=== PATIENT | male | born 1970 | race Caucasian/White ===

== ENCOUNTER 2017-01-22 09:54 | Emergency (ER) | payer OTHER ==
[~2017-01-22] VITALS: Ht 172.7 cm; Wt 84.1 kg
[~2017-01-22 09:54] MED LIST: CEFT1INJ57 INJ; DIPH25CA5 PO; HYDR25TA5 PO; IBUP-1050 PO; LSN20 PO; OXYC1TAB3 PO
[2017-01-22 09:56] VITALS: TEMP 37.1; Ht 172.7 cm; Wt 84.1 kg
[2017-01-22 10:14] VITALS: O2SAT 97
[2017-01-22] MEDS ORDERED: ASPIRIN 81 MG CHEW PO STA (10:14)
[2017-01-22] MEDS: NITROGLYCERIN 0.4 MG SL PER TAB CHARGE SL PRN ×2 (10:20→10:26)
[2017-01-22 10:29] LABS: BASO % 0.4 %; BASO ABS # 0.05 K/uL (0-0.2); COMPLETE YES; EOS % 1.7 %; HEMATOCRIT 40.8 % (42-52); IG% 0.1 %; LYMPH % 29.9 %; LYMPH ABS # 4.26 K/uL (1.2-3.4); MEAN CELL VOLUME 85.5 fL (80-100); MEAN CORPUSCULAR HEMOGLOBIN 29.6 pg (25-34); MEAN CORPUSCULAR HGB CONC 34.6 g/dl (32-36); MEAN PLATELET VOLUME 9.7 fL (7.4-10.4); MONO % 3.9 %; PLATELET COUNT 285 K/uL (130-400); RED BLOOD COUNT 4.77 M/uL (4.7-6.1); WHITE BLOOD COUNT 14.24 K/uL (4.8-10.8)
--- NOTE | 2017-01-22 10:38 | DIAGNOSTIC IMAGING REPORT ---
CHEST ONE VIEW PORTABLE HISTORY: Atypical Chest Pain COMPARISON: Chest 09/11/2016. FINDINGS: The lungs are clear. Cardiac silhouette is normal in size. No pleural effusions. No pneumothorax. IMPRESSION: No acute process. Electronically signed by: Teto Restrepo M.D. 01/22/2017 10:37 AM Dictated Date/Time: 01/22/2017 10:36 AM
[2017-01-22 10:44] LABS: BLOOD UREA NITROGEN 17 mg/dl (7-18); CARBON DIOXIDE 23 mmol/L (21-32); CHLORIDE 105 mmol/L (98-107); CREATININE 0.99 mg/dl (0.60-1.40); GLUCOSE 99 mg/dl (70-99); POTASSIUM 3.8 mmol/L (3.5-5.1); SODIUM 137 mmol/L (136-145)
[2017-01-22] MEDS ORDERED: PRLSR20 PO (10:46)
[2017-01-22] MEDS ORDERED: ONDANSETRON INJ 2 MG/ML 2 ML VIAL IV STA (10:51)
[2017-01-22] MEDS ORDERED: MoRPHine SULFATE 4 MG/ML 1 ML CARP\\VIAL IV STA ×2 (10:51→13:26)
[2017-01-22] MEDS ORDERED: SODIUM CHLORIDE 0.9% 1000ML 1,000 ML IV STA (12:48)
[2017-01-22 15:45] VITALS: BP 110/72; PULSE 90; O2SAT 95
--- NOTE | 2017-01-22 16:45 | EXERCISE STRESS ECHO ---
*NOTICE TO RECEIVING LIBERTARIAN AGENCY This information is strictly Confidential and protected under [place] law. [place] law prohibits you from making any further disclosure of this information unless further disclosure is expressly permitted by the written consent of the person to whom it pertains or is authorized by law. A general authorization for the release of medical or other information is not sufficient for this purpose. Hospital accepts no responsibility if the information is made available to any other person, INCLUDING THE PATIENT. Interpretation Summary * Name: ARACELI DAVIS Study Date: 01/22/2017 02:00 PM BP: 108/60 mmHg * Patient Location: [facility] HR: 65 * : 1970 (M/d/yyyy) Gender: Male Height: 68 in * Age: 47 yrs Ethnicity: CA Weight: 185 lb * Ordering Physician: Wale Ventura * Referring Physician: SRIKANTH * Performed By: Leatha De Souza RDCS * * Reason For Study: CHEST PAIN * BSA: 2.0 m2 * History: CHEST PAIN * The study was technically adequate. * There is no comparison study available. * The exercise echocardiographic examination is normal without resting left ventricular wall motion abnormalities or inducible ischemia. * -- Conclusions -- * Left ventricular systolic function is normal. * Ejection Fraction = 55-60%. * Resting wall motion: Normal. Stress wall motion: Appropriate increase in Left ventricular systolic function and decrease in cavity size. No stress induced segmental wall motion abnormalities. * No significant valvular pathology. Procedure Details * ECHOEX, CPT #44434 * A contrast injection of Definity was performed to improve assessment of LV function. * Contrast was injected into an intravenous site in the right arm. * One vial of Definity ultrasound contrast was diluted in normal saline to a total volume of 10 ml. A total of '4' ml of solution was administered during imaging. * Lot # [id number] of Definity utilized for procedure. * Expiration date FEB 05. * The attending nurse who injected the contrast agent was TIM SHEPHERD RN. * ECHO DOPPLER, CPT #64550 * ECHO COLOR FLOW, CPT #13295 Left Ventricle * The left ventricle is normal in size. * There is no thrombus. * There is normal left ventricular wall thickness. * Ejection Fraction = 55-60%. * Left ventricular systolic function is normal. * Resting wall motion: Normal. Stress wall motion: Appropriate increase in Left ventricular systolic function and decrease in cavity size. No stress induced segmental wall motion abnormalities. Right Ventricle * The right ventricle is normal in size and function. Atria * The left atrial size is normal. * Right atrial size is normal. * No ASD detected; PFO is not assessed. Mitral Valve * The mitral valve is normal. * There is no mitral valve stenosis. * Significant mitral regurgitation is absent. Tricuspid Valve * The tricuspid valve is normal. * There is no tricuspid stenosis. * No tricuspid regurgitation. Aortic Valve * The aortic valve is not well visualized. * No hemodynamically significant valvular aortic stenosis. * No aortic regurgitation is present. Pulmonic Valve * The pulmonary valve is not well seen, but the Doppler examination is normal without significant regurgitation or stenosis. Great Vessels * The aortic root is normal size. Pericardium * There is no pericardial effusion. Stress Parameters * The baseline ECG displays normal sinus rhythm. * Stress ECG: No ST changes. No arrhythmias. * The stress portion of this study was personally supervised by the undersigned interpreting physician. * Rest heart rate was '65' BPM. * Rest blood pressure was '108/60' * Maximum heart rate achieved was 153 bpm. * Maximum heart rate was 87 % of maximum age-predicted heart rate. * Maximum blood pressure was '186/74' * Total exercise time was '9:00' * Maximum exercise MET level achieved was '10.10' METS * Maximum treadmill speed was '3.40' miles per hour. * Maximum treadmill elevation was '14.00'% grade. * Exercise was terminated due to 'fatigue' * The patient exhibited fatigue during the drug infusion. Left Ventricular Diastolic Function * Pulse wave TDI of the anterior and posterior mitral annulas demonstrates normal LV relaxation MMode 2D Measurements and Calculations IVSd 0.92 cm IVSs 1.2 cm LVIDd 4.1 cm LVIDs 3.0 cm LVPWd 1.0 cm LVPWs 1.4 cm IVS/LVPW 0.88 FS 27.5 % EDV(Teich) 75.5 ml ESV(Teich) 34.8 ml EF(Teich) 53.9 % EDV(cubed) 70.4 ml ESV(cubed) 26.8 ml EF(cubed) 61.9 % % IVS thick 30.3 % % LVPW thick 38.4 % LV mass(C)d 130.4 grams LV mass(C)dI 66.0 grams/m\S\2 LV mass(C)s 127.5 grams LV mass(C)sI 64.5 grams/m\S\2 SV(Teich) 40.7 ml SI(Teich) 20.6 ml/m\S\2 SV(cubed) 43.6 ml SI(cubed) 22.1 ml/m\S\2 Ao root diam 3.0 cm Ao root area 7.3 cm\S\2 LA dimension 3.4 cm LA/Ao 1.1 LVAd ap4 31.6 cm\S\2 LVLd ap4 9.1 cm EDV(MOD-sp4) 91.7 ml LVAs ap4 18.9 cm\S\2 LVLs ap4 7.4 cm ESV(MOD-sp4) 42.4 ml EF(MOD-sp4) 53.8 % LVAd ap2 24.9 cm\S\2 LVLd ap2 8.7 cm EDV(MOD-sp2) 63.0 ml LVAs ap2 13.6 cm\S\2 LVLs ap2 7.0 cm ESV(MOD-sp2) 23.8 ml EF(MOD-sp2) 62.2 % SV(MOD-sp4) 49.3 ml SI(MOD-sp4) 24.9 ml/m\S\2 SV(MOD-sp2) 39.2 ml SI(MOD-sp2) 19.8 ml/m\S\2
--- NOTE | 2017-01-22 17:48 | EMERGENCY ROOM VISIT NOTE ---
History Report prepared by Juan: Damian Nevarez Under the Supervision of: Dr. Wale Ventura D.O. First contact with patient: 10:01 Chief Complaint: CHEST PAIN Stated Complaint: CHEST PAIN AND DIZZINESS History of Present Illness The patient is a 47 year old male who presents to the Emergency Room with complaints of persistent chest pain that started around 45 minutes. The patient says the chest pain is accompanied with dizziness, shortness of breath, arm pain , and nausea. He still has the chest pain and accompanied symptoms. The patient was just getting to work when the symptoms came on. He has not taken anything for the pain. His pain is not worsened or made better by anything. He denies any vomiting, coughing, diarrhea, or urinary symptoms. He has had episodes similar to this once or twice in the past. He has hypertension, and takes Hydrochlorothiazide and Lisinopril for that. He says that he has high cholesterol as well, but it is not bad enough to take medication for it. He is a smoker. The patient has no previous heart disease. He has not had any recent trips or surgeries. He has not had any previous stress tests. Source of History: patient Onset: 45 minutes ago Position: chest Timing: other (persistent) Associated Symptoms: + SOB, + nausea, No cough, No diarrhea, No urinary symptoms, No vomiting Note: Associated symptoms: Dizziness, arm pain. Review of Systems See HPI for pertinent positives & negatives. A total of 10 systems reviewed and were otherwise negative. Past Medical & Surgical Medical Problems: (1) Abrasion of right arm (2) ANXIETY STATE NOS (3) BIPOLAR DISORDER, UNSPECIFIED (4) Bronchitis (5) Chest pain (6) Chest pain (7) DEPRESS DISORDER-UNSPEC (8) HYPERTENSION NOS (9) Ingrown left big toenail (10) Injury of right hand (11) Left foot pain (12) Leukocytosis (13) LUMBAR DISC DISPLACEMENT (14) Muscle strain (15) Paronychia of great toe, left (16) Pneumonitis (17) Precordial chest pain (18) Right elbow pain (19) Thoracic myofascial strain Family History Cancer Heart disease Hypertension Kidney disease Lung disease Social History Smoking Status: Current Every Day Smoker Alcohol Use: occasionally Drug Use: none Marital Status: single Housing Status: lives with significant other Occupation Status: employed Current/Historical Medications Scheduled Diphenhydramine Hcl (Benadryl), 25 MG PO DAILY Hydrochlorothiazide (Hydrochlorothiazide), 25 MG PO DAILY Lisinopril (Lisinopril), 20 MG PO DAILY Omeprazole (Prilosec), 20 MG PO DAILY Scheduled PRN Ibuprofen (Advil), 400 MG PO DIRECTED PRN for Pain Allergies Coded Allergies: Acetaminophen (Verified Allergy, Intermediate, hives, 01/22/17) Hydrocodone (Verified Allergy, Intermediate, hives, 01/22/17) Ketorolac (Verified Allergy, Intermediate, HIVES, HAS TAKEN MOTRIN W/O PROBLEM, 01/22/17) Penicillins (Verified Allergy, Unknown, ., 01/22/17) Tramadol (Verified Allergy, Unknown, ., 01/22/17) Propoxyphene (Verified Adverse Reaction, Mild, THROWS UP AFTER TAKING, 01/22) Physical Exam Vital Signs Date Time Temp Pulse Resp B/P Pulse Ox O2 Delivery O2 Flow Rate FiO2 01/22/17 15:45 90 20 110/72 95 01/22/17 14:35 74 16 112/77 97 01/22/17 13:39 66 18 114/78 97 Room Air 01/22/17 13:04 72 01/22/17 12:00 66 14 98/72 97 01/22/17 11:05 78 20 122/83 96 01/22/17 10:47 77 24 116/70 95 Room Air 01/22/17 10:33 82 24 117/72 95 01/22/17 10:27 89 28 124/77 94 Room Air 01/22/17 10:20 82 16 127/76 96 Room Air 01/22/17 10:14 97 Room Air 01/22/17 10:10 97 01/22/17 10:10 97 Room Air 01/22/17 09:56 37.1 102 18 114/82 95 Room Air Physical Exam GENERAL: sitting up in bed, alert, well appearing, well nourished, no distress, non-toxic EYE EXAM: normal conjunctiva OROPHARYNX: no exudate, no erythema, lips, buccal mucosa, and tongue normal and mucous membranes are moist NECK: supple, no nuchal rigidity, no adenopathy, non-tender LUNGS: Clear to auscultation. Normal chest wall mechanics HEART: no murmurs, S1 normal and S2 normal ABDOMEN: abdomen soft, non-tender, normo-active bowel sounds, no masses, no rebound or guarding. BACK: Back is symmetrical on inspection and there is no deformity, no midline tenderness, no CVA tenderness. SKIN: no rashes and no bruising UPPER EXTREMITIES: upper extremities are grossly normal. radial pulses equal bilaterally. LOWER EXTREMITIES: No pitting edema. Calves equal bilaterally. NEURO EXAM: Normal sensorium, cranial nerves II-XII grossly intact, normal speech, no gross weakness of arms, no gross weakness of legs. Medical Decision & Procedures ER Provider Diagnostic Interpretation: Xray results per the radiologist and my interpretation. CHEST ONE VIEW PORTABLE HISTORY: Atypical Chest Pain COMPARISON: Chest 09/11/2016. FINDINGS: The lungs are clear. Cardiac silhouette is normal in size. No pleural effusions. No pneumothorax. IMPRESSION: No acute process. Electronically signed by: Teto Restrepo M.D. 01/22/2017 10:37 AM Dictated Date/Time: 01/22/2017 10:36 AM Laboratory Results 01/22/17 10:10 Red Blood Count 4.77, Mean Corpuscular Volume 85.5, Mean Corpuscular Hemoglobin 29.6, Mean Corpuscular Hemoglobin Concent 34.6, Mean Platelet Volume 9.7, Neutrophils (%) (Auto) 64.0, Lymphocytes (%) (Auto) 29.9, Monocytes (%) (Auto) 3.9, Eosinophils (%) (Auto) 1.7, Basophils (%) (Auto) 0.4, Neutrophils # (Auto) 9.12, Lymphocytes # (Auto) 4.26, Monocytes # (Auto) 0.55, Eosinophils # (Auto) 0.24, Basophils # (Auto) 0.05 01/22/17 10:10 Test 01/22/17 10:10 01/22/17 14:00 White Blood Count 14.24 K/uL (4.8-10.8) Red Blood Count 4.77 M/uL (4.7-6.1) Hemoglobin 14.1 g/dL (14.0-18.0) Hematocrit 40.8 % (42-52) Mean Corpuscular Volume 85.5 fL (80-100) Mean Corpuscular Hemoglobin 29.6 pg (25-34) Mean Corpuscular Hemoglobin Concent 34.6 g/dl (32-36) Platelet Count 285 K/uL (130-400) Mean Platelet Volume 9.7 fL (7.4-10.4) Neutrophils (%) (Auto) 64.0 % Lymphocytes (%) (Auto) 29.9 % Monocytes (%) (Auto) 3.9 % Eosinophils (%) (Auto) 1.7 % Basophils (%) (Auto) 0.4 % Neutrophils # (Auto) 9.12 K/uL (1.4-6.5) Lymphocytes # (Auto) 4.26 K/uL (1.2-3.4) Monocytes # (Auto) 0.55 K/uL (0.11-0.59) Eosinophils # (Auto) 0.24 K/uL (0-0.5) Basophils # (Auto) 0.05 K/uL (0-0.2) RDW Standard Deviation 41.4 fL (36.4-46.3) RDW Coefficient of Variation 13.2 % (11.5-14.5) Immature Granulocyte % (Auto) 0.1 % Immature Granulocyte # (Auto) 0.02 K/uL (0.00-0.02) D-Dimer < 190 ug/L FEU (0-500) Anion Gap 9.0 mmol/L (3-11) Est Creatinine Clear Calc Drug Dose 99.5 ml/min Estimated GFR () 106.2 Estimated GFR (Non- 91.6 BUN/Creatinine Ratio 17.0 (10-20) Calcium Level 9.0 mg/dl (8.5-10.1) Total Creatine Kinase 53 U/L (39-308) Creatine Kinase MB < 0.5 ng/ml (0.5-3.6) Creatine Kinase MB Ratio (0-3.0) Troponin I < 0.015 ng/ml (0-0.045) Laboratory results per my review. Medications Administered Medications (Trade) Dose Ordered Sig/Can Route Start Time Stop Time Status Last Admin Dose Admin Aspirin (Aspirin Chew) 324 mg NOW STAT PO 01/22/17 10:14 01/22/17 10:15 DC 01/22/17 10:18 324 MG Nitroglycerin (Nitrostat Tab) 0.4 mg Q5M PRN SL 01/22/17 10:15 01/22/17 16:33 DC 01/22/17 10:26 0.4 MG Morphine Sulfate (MoRPHine SULFATE INJ) 4 mg NOW STAT IV 01/22/17 10:51 01/22/17 10:53 DC 01/22/17 11:04 4 MG Ondansetron HCl 4 mg 4 mg NOW STAT IV 01/22/17 10:51 01/22/17 10:53 DC 01/22/17 11:04 4 MG Sodium Chloride (Nss 1000ml) 1,000 ml @ 999 mls/hr Q1H1M STAT IV 01/22/17 12:48 01/22/17 13:48 DC 01/22/17 12:51 999 MLS/HR Morphine Sulfate (MoRPHine SULFATE INJ) 4 mg NOW STAT IV 01/22/17 13:26 01/22/17 13:28 DC 01/22/17 13:39 4 MG ECG Indication: chest pain Rate (beats per minute): 84 Findings: no ectopy, other (flipped T-wave in lead 3) Change: no significant change (from September 11 2016) ED Course ED COURSE: Vital signs were reviewed and showed tachycardic vitals. The patients medical record was reviewed The above diagnostic studies were performed and reviewed. ED treatments and interventions as stated above. 1009: The patient was evaluated in room C10. A complete history and physical examination was performed. 1014: Ordered Aspirin Chew 324 mg PO. 1015: Ordered Nitrostat Tab 0.4 SL PRN. 1050: I reevaluated the patient and he is still having chest pain after the nitro. 1051: Ordered Zofran Inj 4 mg IV, Morphine Sulfate Inj 4 mg IV. 1248: Ordered NSS 1000 ml @ 999 mls/hr IV. 1320: I reevaluated the patient and updated him. 1511: The patient is over at CT. 1543: I discussed the patient with Dr. Randy Ambrosio cardiology - he says that the patient is ready to be discharged. 1547: Upon reevaluation, the patient is resting comfortably.I discussed my findings with the patient and he understands and agrees with the treatment plan. Based on the patients age, coexisting illnesses, exam and lab findings the decision to treat as an outpatient was made. The patient remained stable while under my care. The patient appeared well at the time of discharge. Medical Decision Differential diagnoses includes but is not limited to acute coronary syndrome, myocardial infarction, pericarditis, pulmonary embolus, aortic dissection, pneumonia, pneumothorax, musculoskeletal, shingles, esophageal. Patient is a 47-year-old male who presents the ER for chest pain which started 45 minutes prior to arrival associated with left arm pain and shortness of breath. He describes it as a heaviness without radiation. Does have a history of hypertension and is a smoker. No previous issues with his aorta. Radial pulses are equal bilateral. Chest x-ray was unremarkable. D-dimer was negative. He is a low risk for PE. Troponins were negative 3. Stress was performed by cardiology which was negative. Patient was given 2 doses of morphine and had improvement of his pain. Nitroglycerin did not improve the pain. Patient was updated regards to his findings and is discharged follow-up with his primary care doctor as an outpatient as this is not cardiac. Discussed with Pt concerning signs and symptoms to watch out for. Pt was instructed to follow up with their PCP and discussed with the patient their option to return to the ED at anytime for persistent or worsening symptoms. The appropriate anticipatory guidance and out-patient management, including indications for return to the emergency department, were explained at length to the patient and understood. Consults Time Called: 1540 Consulting Physician: Dr. Randy Ambrosio cardiology Returned Call: [phone] I discussed the patient with Dr. Randy Ambrosio cardiology - he says that the patient is ready to be discharged. Impression Primary Impression: Precordial chest pain Scribe Attestation The scribe's documentation has been prepared under my direction and personally reviewed by me in its entirety. I confirm that the note above accurately reflects all work, treatment, procedures, and medical decision making performed by me. Departure Information Dispostion Home / Self-Care Referrals Je Aquino D.O. (PCP) Forms HOME CARE DOCUMENTATION FORM, IMPORTANT VISIT INFORMATION Patient Instructions Chest Pain - [facility], My [facility] Additional Instructions Please follow up with your primary care doctor with in the next 24 hours. Any worsening of your symptoms, please return to the ED immediately. This includes fevers greater than 100.4, passing out, worsening chest pain, weakness of your arms or legs, or any other concerning signs or symptoms from your standpoint.
[2017-01-23] MEDS ORDERED: ONDA4TAB46 PO (16:14)
[2017-01-23] MEDS ORDERED: IBUP-1427 PO (17:27)
[2017-08-25] MEDS ORDERED: AZIT250T PO (16:50)
== END 2017-01-22 16:03 | disposition home or self-care (01) ==
LOC: C.EDB 09:55 → C.EDC 16:03
DX: R07.2 Precordial pain (principal); I10 Essential (primary) hypertension; Z82.49 Family history of ischemic heart disease and other diseases of the circulatory system; F17.200 Nicotine dependence, unspecified, uncomplicated

== ENCOUNTER 2017-01-23 15:26 | Emergency (ER) | payer OTHER ==
[~2017-01-23] VITALS: Ht 175.3 cm; Wt 81.4 kg
[~2017-01-23 15:26] MED LIST changes: -CEFT1INJ57 INJ; -OXYC1TAB3 PO; +PRLSR20 PO
[2017-01-23 15:36] VITALS: TEMP 36.4; Ht 175.3 cm; Wt 81.4 kg
[2017-01-23] MEDS ORDERED: ONDANSETRON INJ 2 MG/ML 2 ML VIAL IV PRN (16:00)
[2017-01-23] MEDS ORDERED: SODIUM CHLORIDE 0.9% 1000ML 1,000 ML IV ONE (16:00)
--- NOTE | 2017-01-23 16:03 | EMERGENCY ROOM VISIT NOTE ---
History Report prepared by Juan: Leatha Hill Under the Supervision of: Dr. David Rodriguez M.D. First contact with patient: 15:44 Chief Complaint: CHEST PAIN Stated Complaint: CHEST PAIN, V, DIZZY History of Present Illness The patient is a 47 year old male who presents to the Emergency Room with complaints of persistent right sided chest pain that began yesterday. He currently rates his discomfort as a 9/10 in severity, describing his pain as a stabbing pain. The patient notes that he was evaluated in the emergency department for chest pain yesterday and states that he has noticed that his pain radiates into his abdomen. Per the patient's , the patient began vomiting when he arrived home yesterday and became dizzy with change of position. She notes that for the past two months the patient has been vomiting in the morning for an unknown reason. The patient notes that his pain is alleviated with lying flat. He denies any melena, hematochezia, or urinary symptoms. The patient associates nausea with his symptoms today. Source of History: patient Onset: yesterday Position: chest (right) Symptom Intensity: 9/10 Quality: stabbing, other (radiating) Timing: other (persistent) Modifying Factors (Relieving): other (lying flat) Associated Symptoms: + abdominal pain, + nausea, + vomiting, No hematochezia , No melena, No urinary symptoms Note: Associated Symptoms: dizziness Review of Systems See HPI for pertinent positives & negatives. A total of 10 systems reviewed and were otherwise negative, the history sheet was reviewed from the patient's visit yesterday. Past Medical & Surgical Medical Problems: (1) Abrasion of right arm (2) ANXIETY STATE NOS (3) BIPOLAR DISORDER, UNSPECIFIED (4) Bronchitis (5) Chest pain (6) Chest pain (7) DEPRESS DISORDER-UNSPEC (8) HYPERTENSION NOS (9) Ingrown left big toenail (10) Injury of right hand (11) Left foot pain (12) Leukocytosis (13) LUMBAR DISC DISPLACEMENT (14) Muscle strain (15) Paronychia of great toe, left (16) Pneumonitis (17) Precordial chest pain (18) Right elbow pain (19) Thoracic myofascial strain Family History Cancer Heart disease Hypertension Kidney disease Lung disease Social History Smoking Status: Current Every Day Smoker Alcohol Use: occasionally Drug Use: none Marital Status: single Housing Status: lives with significant other Occupation Status: employed Current/Historical Medications Scheduled Diphenhydramine Hcl (Benadryl), 25 MG PO DAILY Hydrochlorothiazide (Hydrochlorothiazide), 25 MG PO DAILY Lisinopril (Lisinopril), 20 MG PO DAILY Omeprazole (Prilosec), 20 MG PO DAILY Scheduled PRN Ibuprofen (Advil), 400 MG PO DIRECTED PRN for Pain Ibuprofen Tab (Motrin), 600 MG PO Q6H PRN for Pain Ondansetron Hcl (Zofran), 4 MG PO Q6 PRN for Nausea Allergies Coded Allergies: Acetaminophen (Verified Allergy, Intermediate, hives, 01/23/17) Hydrocodone (Verified Allergy, Intermediate, hives, 01/23/17) Ketorolac (Verified Allergy, Intermediate, HIVES, HAS TAKEN MOTRIN W/O PROBLEM, 01/23/17) Penicillins (Verified Allergy, Unknown, ., 01/23/17) Tramadol (Verified Allergy, Unknown, ., 01/23/17) Propoxyphene (Verified Adverse Reaction, Mild, THROWS UP AFTER TAKING, 01/23) Physical Exam Vital Signs Date Time Temp Pulse Resp B/P Pulse Ox O2 Delivery O2 Flow Rate FiO2 01/23/17 16:30 94 Room Air 01/23/17 15:36 36.4 89 20 135/82 97 Room Air Physical Exam GENERAL: Patient appears to be in mild to moderate distress. Patient awake, alert, oriented x 3. Patient follows commands. Patient does not appear toxic. Patient is adequately hydrated and well-nourished. SKIN: No erythema, pallor, cyanosis or rash HEENT: Normal head, pupils equal, reactive to light and accommodation. Neck: Without adenopathy, no neck vein distention. LUNGS: Clear to auscultation. No wheezes, no rales, no rhonchi. HEART: No murmurs. No gallops. No rubs ABDOMEN: Soft, nontender. No masses, no rebound, no hepatomegaly or splenomegaly. EXTREMITIES: No signs of trauma. No pedal or pretibial edema. No calf or thigh tenderness. NEUROLOGIC: Cranial nerves II-XII within normal limits. No gross motor sensory function deficits. Medical Decision & Procedures ER Provider Diagnostic Interpretation: Radiology results as stated below per my review and radiologist interpretation: Right upper quadrant ultrasound GALLBLADDER-ABD LIMITED CLINICAL HISTORY: right sided abd pain pain. Nausea. TECHNIQUE: Ultrasound COMPARISON STUDY: None FINDINGS: Normal gallbladder. Common bile duct 4 mm. Liver is uniform. Pancreas and right kidney are unremarkable. No evidence for hydronephrosis. 1.4 cm lower pole right renal cyst. IMPRESSION: Small right renal cyst. Otherwise negative study Electronically signed by: Ryan Cody M.D. 01/23/2017 5:13 PM Dictated Date/Time: 01/23/2017 5:12 PM Laboratory Results 01/23/17 16:20 Red Blood Count 4.90, Mean Corpuscular Volume 86.3, Mean Corpuscular Hemoglobin 30.6, Mean Corpuscular Hemoglobin Concent 35.5, Mean Platelet Volume 9.9, Neutrophils (%) (Auto) 67.2, Lymphocytes (%) (Auto) 25.0, Monocytes (%) (Auto) 5.2, Eosinophils (%) (Auto) 1.9, Basophils (%) (Auto) 0.4, Neutrophils # (Auto) 11.99, Lymphocytes # (Auto) 4.45, Monocytes # (Auto) 0.93, Eosinophils # (Auto) 0.33, Basophils # (Auto) 0.07 01/23/17 16:20 Test 01/23/17 00:00 01/23/17 16:20 Urine Color YELLOW Urine Appearance CLEAR (CLEAR) Urine pH 6.5 (4.5-7.5) Urine Specific [place] 1.010 (1.000-1.030) Urine Protein NEG (NEG) Urine Glucose (UA) NEG (NEG) Urine Ketones NEG (NEG) Urine Occult Blood NEG (NEG) Urine Nitrite NEG (NEG) Urine Bilirubin NEG (NEG) Urine Urobilinogen NEG (NEG) Urine Leukocyte Esterase NEG (NEG) White Blood Count 17.82 K/uL (4.8-10.8) Red Blood Count 4.90 M/uL (4.7-6.1) Hemoglobin 15.0 g/dL (14.0-18.0) Hematocrit 42.3 % (42-52) Mean Corpuscular Volume 86.3 fL (80-100) Mean Corpuscular Hemoglobin 30.6 pg (25-34) Mean Corpuscular Hemoglobin Concent 35.5 g/dl (32-36) Platelet Count 285 K/uL (130-400) Mean Platelet Volume 9.9 fL (7.4-10.4) Neutrophils (%) (Auto) 67.2 % Lymphocytes (%) (Auto) 25.0 % Monocytes (%) (Auto) 5.2 % Eosinophils (%) (Auto) 1.9 % Basophils (%) (Auto) 0.4 % Neutrophils # (Auto) 11.99 K/uL (1.4-6.5) Lymphocytes # (Auto) 4.45 K/uL (1.2-3.4) Monocytes # (Auto) 0.93 K/uL (0.11-0.59) Eosinophils # (Auto) 0.33 K/uL (0-0.5) Basophils # (Auto) 0.07 K/uL (0-0.2) RDW Standard Deviation 42.6 fL (36.4-46.3) RDW Coefficient of Variation 13.4 % (11.5-14.5) Immature Granulocyte % (Auto) 0.3 % Immature Granulocyte # (Auto) 0.05 K/uL (0.00-0.02) Anion Gap 8.0 mmol/L (3-11) Est Creatinine Clear Calc Drug Dose 107.3 ml/min Estimated GFR () 120.8 Estimated GFR (Non- 104.2 BUN/Creatinine Ratio 12.5 (10-20) Calcium Level 8.8 mg/dl (8.5-10.1) Total Bilirubin 0.3 mg/dl (0.2-1) Aspartate Amino Transf (AST/SGOT) 8 U/L (15-37) Alanine Aminotransferase (ALT/SGPT) 15 U/L (12-78) Alkaline Phosphatase 83 U/L (45-117) Total Protein 7.5 gm/dl (6.4-8.2) Albumin 3.9 gm/dl (3.4-5.0) Globulin 3.6 gm/dl (2.5-4.0) Albumin/Globulin Ratio 1.1 (0.9-2) Lipase 127 U/L (73-393) Laboratory results as stated above per my review. Medications Administered Medications (Trade) Dose Ordered Sig/Can Route Start Time Stop Time Status Last Admin Dose Admin Ondansetron HCl 4 mg 4 mg Q1HWA PRN IV 4/5/17 16:00 02/22/17 15:59 01/23/17 16:29 4 MG Sodium Chloride (Nss 1000ml) 1,000 ml @ 1,000 mls/hr Q1H ONCE IV 01/23/17 16:00 01/23/17 16:59 DC 01/23/17 16:29 1,000 MLS/HR ECG Indication: chest pain Rate (beats per minute): 69 Rhythm: sinus rhythm Findings: no acute ischemic change, no ectopy ED Course 1545: Past medical records reviewed. The patient was evaluated in room B7. A complete history and physical examination was performed. 1600: Ordered Sodium Chloride 1000 ml @ 1000 mls/hr IV, Zofran Inj 4 mg IV. 1717: I reevaluated the patient and he is resting comfortably. I discussed the exam findings with him and I discussed the treatment plan. He verbalized complete understanding and agreement. He is ready to go home. Medical Decision I considered multiple diagnoses including myocardial infarction, chest wall pain , pericarditis, myocarditis, aortic emergencies, pulmonary embolism, congestive heart failure, GI causes, cholelithiasis, cholecystitis, peptic/gastric ulcer disease, gastritis, musculoskeletal pain, and other significant cardiopulmonary disorders. The patient is here with right-sided abdominal and chest pain. was concerned that the patient may have gallbladder disease. The patient was here yesterday and a full cardio pulmonary workup. Stress test was negative. Additional lab work and ultrasound was performed today. Please see above. The patient has chronic/recurrent leukocytosis. The patient does not appear to have gallbladder disease. I do not believe he has a cardiopulmonary source for his pain. Pain may be musculoskeletal. GI causes including peptic/gastric ulcer disease or gastritis remain in the differential. The patient's been on multiple medications in the past. The patient has been taking ibuprofen but states it does not work. I do not feel comfortable prescribing narcotics for this patient. He is to follow-up with his family physician. Impression Primary Impression: Musculoskeletal pain Scribe Attestation The scribe's documentation has been prepared under my direction and personally reviewed by me in its entirety. I confirm that the note above accurately reflects all work, treatment, procedures, and medical decision making performed by me. Departure Information Dispostion Home / Self-Care Prescriptions Ibuprofen Tab (MOTRIN) 600 Mg Tab 600 MG PO Q6H Y for Pain, #30 TAB Prov: David Rodriguez M.D. 01/23/17 Referrals Je Aquino D.OJaycee (PCP) Forms HOME CARE DOCUMENTATION FORM, IMPORTANT VISIT INFORMATION Patient Instructions My [facility] Additional Instructions 600-800 mg ibuprofen every 6 hours as needed for pain. Continue all of your current medications as prescribed. Follow-up with your family physician within the next 2 weeks.
[2017-01-23] MEDS ORDERED: ONDA4TAB46 PO (16:14)
[2017-01-23 16:29] LABS: BASO % 0.4 %; BASO ABS # 0.07 K/uL (0-0.2); COMPLETE YES; EOS % 1.9 %; HEMATOCRIT 42.3 % (42-52); IG% 0.3 %; LYMPH ABS # 4.45 K/uL (1.2-3.4); MEAN CELL VOLUME 86.3 fL (80-100); MEAN CORPUSCULAR HEMOGLOBIN 30.6 pg (25-34); MEAN CORPUSCULAR HGB CONC 35.5 g/dl (32-36); MEAN PLATELET VOLUME 9.9 fL (7.4-10.4); MONO % 5.2 %; NEUT % 67.2 %; PLATELET COUNT 285 K/uL (130-400); WHITE BLOOD COUNT 17.82 K/uL (4.8-10.8)
[2017-01-23 16:48] LABS: ALB/GLOB RATIO 1.1 (0.9-2); BUN/CREATININE RATIO 12.5 (10-20); CALCIUM 8.8 mg/dl (8.5-10.1); CREATININE 0.87 mg/dl (0.60-1.40); POTASSIUM 3.6 mmol/L (3.5-5.1)
[2017-01-23 16:52] LABS: URINE APPEARANCE CLEAR (CLEAR); URINE BILIRUBIN NEG (NEG); URINE COLOR YELLOW; URINE NITRITE NEG (NEG); URINE PH 6.5 (4.5-7.5); UROBILINOGEN NEG (NEG); ZZUR CULT IF INDIC CLEAN CATCH NO
[2017-01-23 16:59] LABS: MANUAL MICROSCOPIC REQUIRED? NO; REVIEW REQ? NO
--- NOTE | 2017-01-23 17:14 | DIAGNOSTIC IMAGING REPORT ---
Right upper quadrant ultrasound GALLBLADDER-ABD LIMITED CLINICAL HISTORY: right sided abd pain pain. Nausea. TECHNIQUE: Ultrasound COMPARISON STUDY: None FINDINGS: Normal gallbladder. Common bile duct 4 mm. Liver is uniform. Pancreas and right kidney are unremarkable. No evidence for hydronephrosis. 1.4 cm lower pole right renal cyst. IMPRESSION: Small right renal cyst. Otherwise negative study Electronically signed by: Ryan Cody M.D. 01/23/2017 5:13 PM Dictated Date/Time: 01/23/2017 5:12 PM
[2017-01-23] MEDS ORDERED: IBUP-1427 PO (17:27)
[2017-01-23 18:04] VITALS: BP 137/102; PULSE 80; O2SAT 97
[2017-08-25] MEDS ORDERED: AZIT250T PO (16:50)
== END 2017-01-23 18:06 | disposition home or self-care (01) ==
LOC: C.EDB 15:28
DX: R07.9 Chest pain, unspecified (principal); M79.1 Myalgia; R42 Dizziness and giddiness; R11.2 Nausea with vomiting, unspecified; N28.1 Cyst of kidney, acquired; F31.9 Bipolar disorder, unspecified; I10 Essential (primary) hypertension; F17.210 Nicotine dependence, cigarettes, uncomplicated

== ENCOUNTER 2017-11-25 20:30 | Emergency (ER) | payer OTHER ==
[~2017-11-25] VITALS: Ht 175.3 cm; Wt 88.8 kg
[~2017-11-25 20:30] MED LIST changes: -PRLSR20 PO
[2017-11-25 20:56] VITALS: TEMP 36.7; Ht 175.3 cm; Wt 88.8 kg
[2017-11-25] MEDS ORDERED: OXYCODONE/ACETAMINOPHEN 5-325 TAB PO STA (21:15)
--- NOTE | 2017-11-25 21:50 | DIAGNOSTIC IMAGING REPORT ---
CT HEAD WITHOUT CONTRAST (CT) CLINICAL HISTORY: Head pain status post trauma COMPARISON STUDY: MRI the brain dated 03/26/2008 TECHNIQUE: Axial CT of the brain is performed from the vertex to the skull base. IV contrast was not administered for this examination. A dose lowering technique was utilized adhering to the principles of ALARA. CT DOSE: 987.54 mGy.cm FINDINGS: There is no evidence of acute hemorrhage. There is no evidence of midline shift. There is an equivocal nonspecific hypodensity within the subcortical left parietal white matter. A nonemergent MRI study is recommended in follow-up to determine whether this represents a true or artifactual finding. No calvarial fractures are visualized. There is no evidence of pathologic ventricular dilatation. There is no evidence of acute sinusitis IMPRESSION: 1. Equivocal subcortical hypodensity within the left parietal white matter. A nonemergent MRI study is recommended in follow-up to determine whether this represents a true or artifactual finding. 2. No evidence of acute hemorrhage Electronically signed by: Galdino De Oliveira M.D. 11/25/2017 9:49 PM Dictated Date/Time: 11/25/2017 9:42 PM
--- NOTE | 2017-11-25 21:54 | DIAGNOSTIC IMAGING REPORT ---
CT OF THE CERVICAL SPINE CLINICAL HISTORY: Neck and shoulder pain status post trauma COMPARISON STUDY: 06/08/2013 CT DOSE: TECHNIQUE: CT scan of the cervical spine was performed from the skull base to the thoracic inlet. Images are reviewed in the axial, sagittal, and coronal planes. IV contrast was not administered for this examination. A dose lowering technique was utilized adhering to the principles of ALARA. FINDINGS: There are right apical blebs. No pneumothorax is visualized There is a reversal the normal cervical lordosis. There are moderate multilevel degenerative changes with prominent posterior lateral osteophytes at the C5-6 and C6-7 levels. There is calcification of posterior longitudinal ligament at the C3-4 level. There is a chronic right C3-4 facet joint irregularity. No acute fractures or traumatic subluxations are visualized IMPRESSION: Moderate degenerative change with reversal the normal cervical lordosis. No acute fractures or traumatic subluxations are visualized. Electronically signed by: Galdino De Oliveira M.D. 11/25/2017 9:53 PM Dictated Date/Time: 11/25/2017 9:50 PM
--- NOTE | 2017-11-25 22:13 | DIAGNOSTIC IMAGING REPORT ---
L SHOULDER MIN 2 VIEWS ROUTINE CLINICAL HISTORY: Left shoulder pain status post trauma COMPARISON: 07/06/2016 DISCUSSION: No fractures or dislocations are visualized. IMPRESSION: No fractures or dislocations identified. Electronically signed by: Galdino De Oliveira M.D. 11/25/2017 10:11 PM Dictated Date/Time: 11/25/2017 10:11 PM
--- NOTE | 2017-11-25 22:14 | DIAGNOSTIC IMAGING REPORT ---
THORACIC SPINE 3 VIEWS ROUTINE CLINICAL HISTORY: Back pain status post trauma COMPARISON STUDY: March 2014 FINDINGS: The paraspinal line is not displaced. There are mild multilevel degenerative changes. No fractures or traumatic subluxations are visualized. IMPRESSION: Mild multilevel degenerative change. No fractures or subluxations identified Electronically signed by: Galdino De Oliveira M.D. 11/25/2017 10:12 PM Dictated Date/Time: 11/25/2017 10:12 PM
[2017-11-25] MEDS ORDERED: PERCOCET HOME PACK PO STA (22:56)
[2017-11-25] MEDS ORDERED: OXYC-57 PO (22:58)
--- NOTE | 2017-11-25 22:59 | EMERGENCY ROOM VISIT NOTE ---
History First contact with patient: 21:04 Chief Complaint: NECK PAIN Stated Complaint: FELL ON ICE, POSSIBLE CONCUSSION, NECK PAIN History of Present Illness The patient is a 47 year old male who presents to the Emergency Room via private vehicle accompanied by female with complaints of "fell on ice, possible concussion, neck pain". The patient states that earlier today he was in a parking lot around 5:30 PM, when he slipped on the ice him a fell backwards and struck his head neck and shoulder. He notes pain in the head, neck and left shoulder region. There is associated dizziness. He denies any loss of consciousness or vomiting. He rates his overall pain currently as a 7/10. Review of Systems A complete 6-point Review of Systems was discussed with the patient, with pertinent positives and negatives listed in the History of Present Illness. All remaining Review of Systems questions can be considered negative unless otherwise specified. Past Medical/Surgical History Medical Problems: (1) Abrasion of right arm (2) ANXIETY STATE NOS (3) BIPOLAR DISORDER, UNSPECIFIED (4) Bronchitis (5) Chest pain (6) Chest pain (7) DEPRESS DISORDER-UNSPEC (8) HYPERTENSION NOS (9) Ingrown left big toenail (10) Injury of right hand (11) Left foot pain (12) Leukocytosis (13) LUMBAR DISC DISPLACEMENT (14) Muscle strain (15) Paronychia of great toe, left (16) Pneumonitis (17) Precordial chest pain (18) Right elbow pain (19) Thoracic myofascial strain Family History Cancer Heart disease Hypertension Kidney disease Lung disease Social History Smoking Status: Current Every Day Smoker Alcohol Use: occasionally Drug Use: none Marital Status: Housing Status: lives with family Occupation Status: employed Current/Historical Medications Scheduled Diphenhydramine Hcl (Benadryl), 25 MG PO DAILY Hydrochlorothiazide (Hydrochlorothiazide), 25 MG PO DAILY Ibuprofen (Advil), 800 MG PO 5XD Lisinopril (Lisinopril), 20 MG PO DAILY Scheduled PRN Oxycodone/Acetaminophen 5MG/325MG (Percocet 5MG/325MG), 1 TAB PO Q6 PRN for Pain Physical Exam Vital Signs Date Time Temp Pulse Resp B/P (MAP) Pulse Ox O2 Delivery O2 Flow Rate FiO2 11/25/17 23:20 72 20 116/76 94 Room Air 11/25/17 20:56 36.7 90 20 154/99 94 Room Air Physical Exam VITAL SIGNS - Vital signs and nursing notes were reviewed. Stable. GENERAL -47-year-old male appearing his stated age. Communicates well with provider and answers questions appropriately. SKIN - Gross examination of the entire body surface demonstrates no lacerations to the body surface. HEAD - Normocephalic, Atraumatic. No Anguiano's Sign or Raccoon's Eyes. No depressed skull fractures palpable. EYES - PERRL with EOMI bilaterally. Without subconjunctival hemorrhage. Palpebral conjunctiva pink and moist with no injection. EARS - No deformities of external structures noted on gross examination bilaterally. No hemotympanum present. No tympanic perforation noted. Handle of malleus, umbo, cone of light, pars tensa/flaccid all easily visualized. NOSE - Midline and without cyanosis. No epistaxis or clear watery discharge noted. Septum midline without deviation. No septal hematoma noted. No overlying ecchymosis noted. MOUTH/OROPHARYNX - Without perioral cyanosis. Tongue midline with equal elevation of palate bilaterally. No blood noted in the oropharynx. No tonsillar hypertrophy, erythema, or exudates noted. No dental fractures noted. NECK - there is tenderness to palpation over the cervical spinous processes. There is cervical paraspinal muscle tenderness noted. LUNGS - Chest wall symmetric without accessory muscle use, intercostals retractions, or central cyanosis. No flail chest or depressed fractures noted. No paradoxical chest wall movements noted. Normal vesicular breath sounds CTA B /L. No wheezes, rales, or rhonchi appreciated. CARDIAC - RRR with S1/S2. No murmur, rubs, or gallops appreciated. EXTREMITIES -No gross deformities noted of the extremities. No tenderness to palpation of the extremities. +5/5 strength noted in UE/LE bilaterally. NEUROLOGIC - Cranial nerves II through XII grossly intact. Sensory intact to light touch throughout. PSYCH - A&O, and cooperates fully with examiner. Pt is very pleasant and interacts well with examiner. Medical Decision & Procedures ER Provider Diagnostic Interpretation: [~ rep ct add3]] CT HEAD WITHOUT CONTRAST (CT) CLINICAL HISTORY: Head pain status post trauma COMPARISON STUDY: MRI the brain dated 03/26/2008 TECHNIQUE: Axial CT of the brain is performed from the vertex to the skull base. IV contrast was not administered for this examination. A dose lowering technique was utilized adhering to the principles of ALARA. CT DOSE: 987.54 mGy.cm FINDINGS: There is no evidence of acute hemorrhage. There is no evidence of midline shift. There is an equivocal nonspecific hypodensity within the subcortical left parietal white matter. A nonemergent MRI study is recommended in follow-up to determine whether this represents a true or artifactual finding. No calvarial fractures are visualized. There is no evidence of pathologic ventricular dilatation. There is no evidence of acute sinusitis IMPRESSION: 1. Equivocal subcortical hypodensity within the left parietal white matter. A nonemergent MRI study is recommended in follow-up to determine whether this represents a true or artifactual finding. 2. No evidence of acute hemorrhage Electronically signed by: Galdino De Oliveira M.D. 11/25/2017 9:49 PM Dictated Date/Time: 11/25/2017 9:[address] OF THE CERVICAL SPINE CLINICAL HISTORY: Neck and shoulder pain status post trauma COMPARISON STUDY: 06/08/2013 CT DOSE: TECHNIQUE: CT scan of the cervical spine was performed from the skull base to the thoracic inlet. Images are reviewed in the axial, sagittal, and coronal planes. IV contrast was not administered for this examination. A dose lowering technique was utilized adhering to the principles of ALARA. FINDINGS: There are right apical blebs. No pneumothorax is visualized There is a reversal the normal cervical lordosis. There are moderate multilevel degenerative changes with prominent posterior lateral osteophytes at the C5-6 and C6-7 levels. There is calcification of posterior longitudinal ligament at the C3-4 level. There is a chronic right C3-4 facet joint irregularity. No acute fractures or traumatic subluxations are visualized IMPRESSION: Moderate degenerative change with reversal the normal cervical lordosis. No acute fractures or traumatic subluxations are visualized. Electronically signed by: Galdino De Oliveira M.D. 11/25/2017 9:53 PM Dictated Date/Time: 11/25/2017 9:50 PM [~ rep ct add3]] THORACIC SPINE 3 VIEWS ROUTINE CLINICAL HISTORY: Back pain status post trauma COMPARISON STUDY: March 2014 FINDINGS: The paraspinal line is not displaced. There are mild multilevel degenerative changes. No fractures or traumatic subluxations are visualized. IMPRESSION: Mild multilevel degenerative change. No fractures or subluxations identified Electronically signed by: Galdino De Oliveira M.D. 11/25/2017 10:12 PM Dictated Date/Time: 11/25/2017 10:12 PM L SHOULDER MIN 2 VIEWS ROUTINE CLINICAL HISTORY: Left shoulder pain status post trauma COMPARISON: 07/06/2016 DISCUSSION: No fractures or dislocations are visualized. IMPRESSION: No fractures or dislocations identified. Electronically signed by: Galdino De Oliveira M.D. 11/25/2017 10:11 PM Dictated Date/Time: 11/25/2017 10:11 PM Medications Administered Medications (Trade) Dose Ordered Sig/Can Route Start Time Stop Time Status Last Admin Dose Admin Oxycodone/ Acetaminophen (Percocet 5-325mg Tab) 1 tab NOW STAT PO 11/25/17 21:15 11/25/17 21:17 DC 11/25/17 21:23 1 TAB Oxycodone/ Acetaminophen (Percocet 5/ 325MG Home Pack) 1 homepack UD STAT PO 11/25/17 22:56 11/25/17 22:57 DC 11/25/17 22:56 1 HOMEPACK Medical Decision Patient was seen and evaluated as above. He presents with today status post fall on ice. It is mechanical in nature, and no evidence of neurologic event incited this. He is nontoxic on exam. The versus risk of obtaining imaging was discussed, and the decision was made to obtain a CT scan of the patient's head and neck as well as x-rays of his left shoulder and thoracic spine. Results as above. Discussion was had regarding the results with the patient, and he is to have a nonemergent MRI in the near future but I believe is okay to have ordered by the family doctor in the outpatient setting. He was informed upon potential differential diagnosis. He'll be given a hard [place] J collar regarding the direct C-spine tenderness. He may warrant an MRI in 2 weeks if this persists. There is no neurovascular deficit upon exam. I do not believe that he had a CVA event causing today's fall. He will be given a short course of pain medication. No red flags in the PDMP. He was educated upon management , educated upon worrisome symptoms which to return, had questions answered prior to discharge, and was discharged home in good condition. In the evaluation and treatment of this patient, the following differential diagnoses were considered: Concussion, Contrecoup Injury, Brain Tumor, Depression, Encephalitis, Hypothyroidism, Meningitis, CVA, TIA, Migraine, Cluster Headache, Intracranial Abnormality, Intracranial Hemorrhage, Subdural Hematoma, Subarachnoid Hemorrhage, Hydrocephalus, Musculoskeletal Strain, Discitis, Cervical Spine Fracture, Cervical Spine Dislocation, Cervical Spine Subluxation, Cervical Spondylosis, Fibromyalgia, Osteoarthritis, Polymyalgia Rheumatica, Psychogenic Pain Disorder, Tumor of Soft Tissue or Spine, Shoulder Contusion, Shoulder Fracture, Shoulder Dislocation, Thoracic Outlet Syndrome, Adhesive Capsulitis, Rotator Cuff Tear, Proximal Clavicle Head Fracture, Apical Pneumonia, Pneumothorax, Hemothorax, or TB. Impression Primary Impression: Fall Additional Impressions: Head pain Neck pain Departure Information Dispostion Home / Self-Care Condition GOOD Prescriptions Oxycodone/Acetaminophen 5MG/325MG (PERCOCET 5MG/325MG) Tab 1 TAB PO Q6 Y for Pain, #12 TAB For Initial Treatment Prov: Danie Otto PA-C 11/25/17 Referrals Je Aquino D.OJaycee (PCP) Patient Instructions My [facility] Additional Instructions You have been treated in the Emergency Department for a Closed Head Injury, fall , and neck pain. You have received pain medicine in the emergency department which impairs your ability to operate a vehicle. It is illegal for you to drive after receiving these medicines. CT Scan of your head/brain demonstrated no acute bleeding or other EMERGENT abnormalities, however follow up for an MRI is recommended because of the head CT findings. Please call family doctor tomorrow to schedule follow up. This does not completely rule out the risk for future damage to the brain. You have been prescribed Percocet to be used for pain control. This is a narcotic medication. You cannot drive or consume alcohol while on this medicine. This medicine should only be used for pain that cannot be controlled with [id number] pain medicines. For pain control, you can use the following [id number] medicines (if >12 yo): - Regular strength (325mg/tab) Tylenol (acetaminophen) 2 tabs every 4-6 hours as needed. Do not exceed 12 tablets in a 24 hour period. Avoid taking more than 3 grams (3000 mg) of Tylenol per day. This includes any other sources of acetaminophen you may take on a regular basis. - Regular strength (200 mg/tab) Advil (ibuprofen) 1-2 tabs every 4-6 hours as needed. Do not exceed a dose of 3200 mg per day. You should relax in a quiet, dark place for the rest of the day. Avoid any possible triggers including: cigarette smoke, caffeine, nicotine, chocolate, wine, beer, loud noises or music, or bright lights. You should schedule a follow-up appointment in 2-3 days with your Primary Care Provider or established Neurologist for further evaluation and treatment of your Headache. Return to the Emergency Department if your current symptoms worsen despite treatment course outlined above, or if you develop any of the following symptoms : intractable pain despite aforementioned treatment course, visual disturbances , loss of vision, unilateral weakness or facial drooping, slurring of speech, loss of coordination, or loss of consciousness. Problem Qualifiers
[2017-11-25 23:20] VITALS: BP 116/76; PULSE 72; O2SAT 94
== END 2017-11-25 23:29 | disposition home or self-care (01) ==
LOC: C.EDB 20:56 → C.EDD 23:29
DX: M54.2 Cervicalgia (principal); R51 Headache; M25.512 Pain in left shoulder; W00.0XXA Fall on same level due to ice and snow, initial encounter; I10 Essential (primary) hypertension; F17.200 Nicotine dependence, unspecified, uncomplicated; Z80.9 Family history of malignant neoplasm, unspecified; Z82.49 Family history of ischemic heart disease and other diseases of the circulatory system; Z84.1 Family history of disorders of kidney and ureter

== ENCOUNTER 2017-11-30 16:13 | Emergency (ER) | payer OTHER ==
[~2017-11-30] VITALS: Ht 175.3 cm; Wt 85.0 kg
[~2017-11-30 16:13] MED LIST changes: +OXYC-57 PO
[2017-11-30 16:18] VITALS: TEMP 36.8; Ht 175.3 cm; Wt 85.0 kg
[2017-11-30] MEDS ORDERED: ACETAMINOPHEN 500 MG TAB PO STA (16:38)
[2017-11-30] MEDS ORDERED: ONDANSETRON INJ 2 MG/ML 2 ML VIAL IV PRN (16:45)
[2017-11-30] MEDS ORDERED: SODIUM CHLORIDE 0.9% 1000ML 1,000 ML IV ONE (16:45)
[2017-11-30 16:55] LABS: BASO % 0.3 %; BASO ABS # 0.04 K/uL (0-0.2); EOS % 0.9 %; EOS ABS # 0.14 K/uL (0-0.5); HEMOGLOBIN 15.9 g/dL (14.0-18.0); IG# 0.04 K/uL (0.00-0.02); LYMPH % 27.2 %; LYMPH ABS # 4.26 K/uL (1.2-3.4); MEAN CELL VOLUME 86.2 fL (80-100); MEAN CORPUSCULAR HEMOGLOBIN 30.5 pg (25-34); MEAN CORPUSCULAR HGB CONC 35.3 g/dl (32-36); MEAN PLATELET VOLUME 10.3 fL (7.4-10.4); MONO % 4.5 %; MONO ABS # 0.71 K/uL (0.11-0.59); NEUT % 66.8 %; NEUT ABS # 10.45 K/uL (1.4-6.5); PLATELET COUNT 262 K/uL (130-400); RED CELL DISTRIBUTION WIDTH SD 41.3 fL (36.4-46.3); WHITE BLOOD COUNT 15.64 K/uL (4.8-10.8)
[2017-11-30 17:03] LABS: CALCIUM 9.1 mg/dl (8.5-10.1); CREATININE 0.96 mg/dl (0.60-1.40); POTASSIUM 3.5 mmol/L (3.5-5.1)
[2017-11-30 17:06] LABS: TOTAL PROTEIN 7.6 gm/dl (6.4-8.2)
--- NOTE | 2017-11-30 17:24 | EMERGENCY ROOM VISIT NOTE ---
History First contact with patient: 16:19 Chief Complaint: FLU LIKE SX Stated Complaint: VOMITING HEADACHE 7 DAYS History of Present Illness The patient is a 47 year old male who presents to the Emergency Room with complaints of intermittent nausea and vomiting over the last 10 days. The patient also describes abdominal cramping. His bowel movements have been sparse. His last one was today and reportedly firm. He denies any fever or chills. The patient's significant other was recently diagnosed with influenza b. He denies any respiratory symptoms. He does have a headache. Review of Systems 10 system review performed and negative unless noted in HPI or below Past Medical/Surgical History Medical Problems: (1) Abrasion of right arm (2) ANXIETY STATE NOS (3) BIPOLAR DISORDER, UNSPECIFIED (4) Bronchitis (5) Chest pain (6) Chest pain (7) DEPRESS DISORDER-UNSPEC (8) HYPERTENSION NOS (9) Ingrown left big toenail (10) Injury of right hand (11) Left foot pain (12) Leukocytosis (13) LUMBAR DISC DISPLACEMENT (14) Muscle strain (15) Paronychia of great toe, left (16) Pneumonitis (17) Precordial chest pain (18) Right elbow pain (19) Thoracic myofascial strain Family History Cancer Heart disease Hypertension Kidney disease Lung disease Social History Smoking Status: Current Every Day Smoker Alcohol Use: occasionally Drug Use: none Marital Status: Housing Status: lives with family Occupation Status: employed Current/Historical Medications Scheduled PRN Oxycodone/Acetaminophen 5MG/325MG (Percocet 5MG/325MG), 1 TAB PO Q6 PRN for Pain Physical Exam Vital Signs Date Time Temp Pulse Resp B/P (MAP) Pulse Ox O2 Delivery O2 Flow Rate FiO2 11/30/17 18:46 88 18 156/92 99 11/30/17 17:45 74 20 156/96 100 Room Air 11/30/17 16:18 36.8 76 16 146/100 97 Room Air Physical Exam VITALS: Vitals are noted on the nurse's note and reviewed by myself. Vital signs stable. GENERAL: 47-year-old male, appears older than stated age, mildly uncomfortable in appearance SKIN: The skin was without rashes, erythema, edema, or bruising. HEAD: Normocephalic atraumatic. MOUTH: Mucous membranes dry NECK: Supple without nuchal rigidity. No lymphadenopathy. Cervical spine is nontender. No JVD. HEART: Regular rate and rhythm without murmurs gallops or rubs. LUNGS: Clear to auscultation bilaterally without wheezes, rales or rhonchi. No accessory muscle use. ABDOMEN: Bowel sounds present, but hypoactive..Soft, nontender, without organomegaly. No guarding or rebound tenderness. MUSCULOSKELETAL: No muscle atrophy, erythema, or edema noted. Strength 5/5 throughout. NEURO: Patient was alert and oriented to person place and time. Normal sensation to touch. No focal neurological deficits. Medical Decision & Procedures ER Provider Diagnostic Interpretation: Chest/abdominal x-rays Patient Name: ARACELI DAVIS Daina Unit Number: [id number] Dictated: 11/30/171734 Transcribed: 11/30/171734 PBS Printed Date/Time: [~ rep prt dt]/[~ rep prt tm] [~ rep ct labl] - [~ rep ct ivnm] [facility] Radiology Department [place] [id number] Dictated: 11/30/171734 Transcribed: 11/30/171734 PBS Printed Date/Time: [~ rep prt dt]/[~ rep prt tm] [~ rep ct labl] - [~ rep ct ivnm] IMPRESSION: 1. No acute cardiopulmonary disease. 2. No radiographic evidence of acute intra-abdominal pathology. Electronically signed by: Ubaldo Christianson M.D. 11/30/2017 5:36 PM Dictated Date/Time: 11/30/2017 5:35 PM The status of this report is Signed. Draft = Not yet reviewed or approved by Radiologist. Signed = Reviewed and approved by Radiologist. <AttendingPhy></AttendingPhy> <FamilyPhy>Je Aquino, D.O.</FamilyPhy> < PrimaryPhy>Je Aquino D.O.</PrimaryPhy> <UnitNumber>[id number]</ UnitNumber> <VisitNumber>[id number]</VisitNumber> <PatientName>ARACELI DAVIS</PatientName> <DateOfBirth>1970</DateOfBirth> <Location>[facility]</ Location> <ServiceDate>11/30/17</ServiceDate> <MNE>ESINDI</MNE> <OrderingPhy> Aletha Alfredo PA-C</OrderingPhy> <OrderingPhyMNE>f rep ord dr stover</ OrderingPhyMNE> <DictatingPhyMNE>f rep dict dr stover</DictatingPhyMNE> <CCListMNE> f rep ct mne</CCListMNE> <AdmittingPhyMNE>f pt admit dr stover</AdmittingPhyMNE> < AttendingPhyMNE>f pt attend dr stover</AttendingPhyMNE> <ConsultingPhyMNE>f pt consult dr stover</ConsultingPhyMNE> <FamilyPhyMNE>f pt fam dr stover</FamilyPhyMNE> <OtherPhyMNE>f pt other dr stover</OtherPhyMNE> < PrimaryPhyMNE>f pt prim care dr stover</PrimaryPhyMNE> <ReferringPhyMNE>f pt referring dr stover</ReferringPhyMNE> Laboratory Results 11/30/17 16:30 Red Blood Count 5.22, Mean Corpuscular Volume 86.2, Mean Corpuscular Hemoglobin 30.5, Mean Corpuscular Hemoglobin Concent 35.3, Mean Platelet Volume 10.3, Neutrophils (%) (Auto) 66.8, Lymphocytes (%) (Auto) 27.2, Monocytes (%) (Auto) 4.5, Eosinophils (%) (Auto) 0.9, Basophils (%) (Auto) 0.3, Neutrophils # (Auto) 10.45, Lymphocytes # (Auto) 4.26, Monocytes # (Auto) 0.71, Eosinophils # (Auto) 0.14, Basophils # (Auto) 0.04 11/30/17 16:30 Test 11/30/17 16:30 11/30/17 16:55 White Blood Count 15.64 K/uL (4.8-10.8) Red Blood Count 5.22 M/uL (4.7-6.1) Hemoglobin 15.9 g/dL (14.0-18.0) Hematocrit 45.0 % (42-52) Mean Corpuscular Volume 86.2 fL (80-100) Mean Corpuscular Hemoglobin 30.5 pg (25-34) Mean Corpuscular Hemoglobin Concent 35.3 g/dl (32-36) Platelet Count 262 K/uL (130-400) Mean Platelet Volume 10.3 fL (7.4-10.4) Neutrophils (%) (Auto) 66.8 % Lymphocytes (%) (Auto) 27.2 % Monocytes (%) (Auto) 4.5 % Eosinophils (%) (Auto) 0.9 % Basophils (%) (Auto) 0.3 % Neutrophils # (Auto) 10.45 K/uL (1.4-6.5) Lymphocytes # (Auto) 4.26 K/uL (1.2-3.4) Monocytes # (Auto) 0.71 K/uL (0.11-0.59) Eosinophils # (Auto) 0.14 K/uL (0-0.5) Basophils # (Auto) 0.04 K/uL (0-0.2) RDW Standard Deviation 41.3 fL (36.4-46.3) RDW Coefficient of Variation 13.0 % (11.5-14.5) Immature Granulocyte % (Auto) 0.3 % Immature Granulocyte # (Auto) 0.04 K/uL (0.00-0.02) Anion Gap 7.0 mmol/L (3-11) Est Creatinine Clear Calc Drug Dose 105.1 ml/min Estimated GFR () 110.2 Estimated GFR (Non- 95.1 BUN/Creatinine Ratio 11.8 (10-20) Calcium Level 9.1 mg/dl (8.5-10.1) Total Bilirubin 0.4 mg/dl (0.2-1) Aspartate Amino Transf (AST/SGOT) 16 U/L (15-37) Alanine Aminotransferase (ALT/SGPT) 22 U/L (12-78) Alkaline Phosphatase 86 U/L (45-117) Total Protein 7.6 gm/dl (6.4-8.2) Albumin 4.0 gm/dl (3.4-5.0) Globulin 3.6 gm/dl (2.5-4.0) Albumin/Globulin Ratio 1.1 (0.9-2) Lipase 98 U/L (73-393) Influenza Type A Antigen Neg for Influ A (NEG) Influenza Type B Antigen Neg for Influ B (NEG) Urine Color DK YELLOW Urine Appearance CLOUDY (CLEAR) Urine pH 7.5 (4.5-7.5) Urine Specific [place] 1.024 (1.000-1.030) Urine Protein NEG (NEG) Urine Glucose (UA) NEG (NEG) Urine Ketones TRACE (NEG) Urine Occult Blood NEG (NEG) Urine Nitrite NEG (NEG) Urine Bilirubin NEG (NEG) Urine Urobilinogen NEG (NEG) Urine Leukocyte Esterase NEG (NEG) Urine WBC (Auto) 0 /hpf (0-5) Urine RBC (Auto) 0-4 /hpf (0-4) Urine Hyaline Casts (Auto) 1-5 /lpf (0-5) Urine Epithelial Cells (Auto) 0-5 /lpf (0-5) Urine Bacteria (Auto) NEG (NEG) Urine Opiates Screen NEG (NEG) Urine Methadone, Qualitative NEG (NEG) Urine Barbiturates NEG (NEG) Urine Phencyclidine (PCP) Level NEG (NEG) Ur Amphetamine/Methamphetamine NEG (NEG) MDMA (Ecstasy) Screen NEG (NEG) Urine Benzodiazepines Screen NEG (NEG) Urine Cocaine Metabolite NEG (NEG) Urine Marijuana (THC) POS (NEG) Medications Administered Medications (Trade) Dose Ordered Sig/Can Route Start Time Stop Time Status Last Admin Dose Admin Sodium Chloride 1,000 ml @ 999 mls/hr Q1H1M ONCE IV 11/30/17 16:45 11/30/17 17:45 DC 11/30/17 16:51 999 MLS/HR Ondansetron HCl (Zofran Inj) 4 mg Q2H PRN IV 11/30/17 16:45 11/30/17 19:04 DC 11/30/17 16:51 4 MG Acetaminophen (Tylenol Tab) 1,000 mg NOW STAT PO 11/30/17 16:38 11/30/17 16:41 DC 11/30/17 16:51 1,000 MG Prochlorperazine Edisylate (Compazine Inj) 10 mg NOW STAT IV 11/30/17 17:59 11/30/17 18:01 DC 11/30/17 18:24 10 MG Diphenhydramine HCl (Benadryl Inj) 25 mg NOW STAT IV 11/30/17 17:59 11/30/17 18:01 DC 11/30/17 18:23 25 MG Sodium Chloride 500 ml @ 999 mls/hr Q31M STAT IV 11/30/17 17:59 2 18:29 DC 11/30/17 17:59 999 MLS/HR ED Course Patient was seen and examined Vital signs including blood pressure were reviewed medications list was verified with patient Labs were obtained, and a saline lock was established The patient was medicated with Tylenol and Zofran. He was hydrated with 1 L of normal saline. Upon reevaluation, the patient was still complaining of mild nausea and headache. He was medicated with Compazine and Benadryl. The patient was reassessed. We reviewed his workup. He voiced understanding. The patient bring his Kay. He demanded to be discharged immediately. His saline lock was pulled. I reviewed discharge instructions the patient. They voiced understanding and had no further questions. Medical Decision Differential diagnosis: Viral GI illness, influenza, SBO, gallbladder pathology , pancreatitis This patient is a 47-year-old male that presents to the emergency department complaining of nausea and vomiting for the last several days. On exam, he was dehydrated. His abdomen was benign. His workup reveals mild leukocytosis. His influenza is negative. Abdominal x-rays did not show any signs of obstruction. The patient was treated with IV fluids, antiemetics and Tylenol. The patient's drug screen was positive for marijuana, which is possibly the source of his persistent vomiting. Before I had a chance to discuss this with the patient, he demanded to be discharged immediately. The RN pulled his IV site. Discharge instructions were reviewed, and he was discharged in fair condition. He was highly advised to follow-up closely with his primary care physician, and return with any new or persistent symptoms Medication Reconcilliation Current Medication List: was personally reviewed by me Blood Pressure Screening Patient's blood pressure: Elevated blood pressure Blood pressure disposition: Did not require urgent referral Impression Primary Impression: Vomiting Departure Information Dispostion Home / Self-Care Condition GOOD Referrals Je Aquino, D.O. (PCP) Patient Instructions My [facility] Additional Instructions You had been evaluated in the emergency department for persistent vomiting over the last several days. You are being abruptly discharged per your request Increase fluids over the next several days. I would recommend staying hydrated with water and Gatorade. You have been examined and treated today on an emergency basis only. This is not a substitute for, or an effort to provide, complete comprehensive medical care. It is impossible to recognize and treat all injuries or illnesses in a single emergency department visit. It is therefore important that you follow up closely with [facility], your PCP, and/or your specialist(s). Call as soon as possible for an appointment. Do not hesitate to return to the emergency department with any new, worsening or concerning symptoms.
--- NOTE | 2017-11-30 17:37 | DIAGNOSTIC IMAGING REPORT ---
ABDOMEN 2VIEW W/PA CHEST RTN CLINICAL HISTORY: 47 years-old Male presenting with vomiting, nausea, constipation for 7-8 days. TECHNIQUE: PA view of the chest and supine and upright views of the abdomen were obtained. COMPARISON: Chest x-ray from 08/25/2017 FINDINGS: Atherosclerosis of the aortic arch. Cardiac silhouette normal in size. Lungs and pleural spaces clear. Nonobstructive bowel gas pattern. No gross pneumoperitoneum. Allowing for bowel gas and stool, no calcifications to suggest nephrolithiasis. Osseous structures normal. IMPRESSION: 1. No acute cardiopulmonary disease. 2. No radiographic evidence of acute intra-abdominal pathology. Electronically signed by: Ubaldo Christianson M.D. 11/30/2017 5:36 PM Dictated Date/Time: 11/30/2017 5:35 PM
[2017-11-30 17:39] LABS: INFLUENZA B ANTIGEN Neg for Influ B (NEG)
[2017-11-30] MEDS ORDERED: PROCHLORPERAZINE 5 MG/ML 2 ML VIAL IV STA (17:59)
[2017-11-30] MEDS ORDERED: SODIUM CHLORIDE 0.9% 500ML 500 ML IV STA (17:59)
[2017-11-30] MEDS ORDERED: DiphenhydrAMINE HCL 50 MG/ML VIAL IV STA (17:59)
[2017-11-30 18:46] VITALS: BP 156/92; PULSE 88; O2SAT 99
== END 2017-11-30 18:47 | disposition home or self-care (01) ==
LOC: C.EDB 16:14
DX: R11.10 Vomiting, unspecified (principal); F41.9 Anxiety disorder, unspecified; F31.9 Bipolar disorder, unspecified; F32.9 Major depressive disorder, single episode, unspecified; I10 Essential (primary) hypertension; M51.26 Other intervertebral disc displacement, lumbar region; Z80.9 Family history of malignant neoplasm, unspecified; Z82.49 Family history of ischemic heart disease and other diseases of the circulatory system; Z84.1 Family history of disorders of kidney and ureter; Z83.6 Family history of other diseases of the respiratory system; F17.210 Nicotine dependence, cigarettes, uncomplicated